=== PATIENT | male | born 1960 | race Caucasian/White ===

== ENCOUNTER 2016-06-24 22:25 | Observation (INO) | payer BC ==
[~2016-06-24] VITALS: Ht 182.9 cm; Wt 76.6 kg
[~2016-06-24 22:25] MED LIST: FLEXERIL OR; NAPROSYN500 MG OR; NEXIUM40 M1 OR; NO HOME MEDS; PRILOSEC20 MG OR; PRILOSEC20 MG/CAP PO; REGLAN5 MG OR; [UNRECOGNIZED DRUG - OTHER]
[2016-06-25 01:45] LABS: HEMATOCRIT 47.9 % (39.0-50.0); HEMOGLOBIN 16.4 g/dl (14.0-18.0); IMMATURE GRANULOCYTES 0.3 % (0.0-1.0); MEAN CELL VOLUME 91.4 fL CALC (80.0-100.0); MEAN CORPUSCULAR HGB 31.3 pG CALC (26.0-32.0); MEAN CORPUSCULAR HGB CONC 34.2 g/L CALC (32.0-36.0); NEUT# 4.58 thou/uL (1.82-7.42); RED BLOOD COUNT 5.24 mill/uL (4.70-6.10); RED CELL DISTRI WIDTH 12.7 % (11.5-15.5)
[2016-06-25 01:51] LABS: ALBUMIN 4.7 g/dL (3.2-5.0); ALKALINE PHOSPHATASE 63 u/l (38-126); ANION GAP 17 (6-22 (CALC)); BILIRUBIN, TOTAL 0.7 mg/dL (0.0-1.4); BUN 8 mg/dL (9-20); BUN/CREATININE RATIO 11 (12-20 (CALC)); CALCIUM 9.8 mg/dL (8.4-10.2); CARBON DIOXIDE 26 mmol/l (22-30); CHLORIDE 103 mmol/l (95-108); CREATININE 0.7 mg/dL (0.7-1.3); GFR > 60 ML/MIN (>=60 (CALC)); GFR FOR AFR.AMER. > 60 ML/MIN (>=60 (CALC)); GLUCOSE 94 mg/dL (75-110); POTASSIUM 3.7 mmol/l (3.5-5.1); SGOT/AST 51 u/l (17-59); SGPT/ALT 71 u/l (21-72); SODIUM 143 mmol/l (137-146); TOTAL PROTEIN 8.1 g/dL (6.3-8.2)
[2016-06-25 02:03] LABS: ACT PARTIAL THROMBO TIME 26.1 SECONDS (20.0-32.5); MYOGLOBIN 91 ng/mL (0 - 121); PROTHROMBIN TIME 10.6 SECONDS (9.0-12.5)
[2016-06-25 06:33] VITALS: BP 129/64
[2016-06-25 12:08] VITALS: BP 142/74
== END 2016-06-25 15:33 | disposition home or self-care (01) | DRG 313 ==
LOC: ENPENDDIS → ED 22:25 → ED-I 06-25 05:24 → ED 06-25 05:46 → MS2 06-25 05:47
PROVIDERS: Emergency Medicine; ADMIT Internal Medicine Geriatric Medicine; ATTEND Internal Medicine Geriatric Medicine
DX: R07.89 Other chest pain (principal); M62.838 Other muscle spasm
CPT/HCPCS: G0378

== ENCOUNTER 2017-03-17 11:02 | Emergency (ER) | payer BC ==
[~2017-03-17] VITALS: Ht 182.9 cm; Wt 95.0 kg
[2017-03-17 11:45] LABS: HEMOGLOBIN 16.9 g/dl (14.0-18.0); IMMATURE GRANULOCYTES 0.3 % (0.0-1.0); MEAN CELL VOLUME 91.6 fL CALC (80.0-100.0); MEAN CORPUSCULAR HGB 31.6 pG CALC (26.0-32.0); MEAN CORPUSCULAR HGB CONC 34.5 g/L CALC (32.0-36.0); NEUT# 5.26 thou/uL (1.82-7.42); RED BLOOD COUNT 5.35 mill/uL (4.70-6.10); RED CELL DISTRI WIDTH 12.3 % (11.5-15.5)
[2017-03-17 11:54] LABS: ANION GAP 18 (6-22 (CALC)); BUN 11 mg/dL (9-20); BUN/CREATININE RATIO 15 (12-20 (CALC)); CARBON DIOXIDE 24 mmol/l (22-30); CHLORIDE 102 mmol/l (95-108); CREATININE 0.8 mg/dL (0.7-1.3); GFR > 60 ML/MIN (>=60 (CALC)); GFR FOR AFR.AMER. > 60 ML/MIN (>=60 (CALC)); GLUCOSE 118 mg/dL (75-110); POTASSIUM 3.7 mmol/l (3.5-5.1); SODIUM 141 mmol/l (137-146)
[2017-03-17 11:56] LABS: PROTHROMBIN TIME 11.4 SECONDS (9.0-12.5)
[2017-03-17 15:26] VITALS: BP 164/79
== END 2017-03-17 15:05 | disposition left against medical advice (07) | DRG 66 ==
LOC: ED 11:02 → ED-I 14:24 → ED 15:05
PROVIDERS: Family Medicine
DX: I63.9 Cerebral infarction, unspecified (principal); Z91.19 Patient's noncompliance with other medical treatment and regimen; R20.0 Anesthesia of skin; R20.2 Paresthesia of skin; R51 Headache; Z72.89 Other problems related to lifestyle; R94.31 Abnormal electrocardiogram [ECG] [EKG]
CPT/HCPCS: Q9967

== ENCOUNTER 2018-08-17 15:56 | Emergency (ER) | payer BC ==
[~2018-08-17] VITALS: Ht 182.9 cm; Wt 95.0 kg
[2018-08-17 16:55] LABS: HEMATOCRIT 46.1 % (39.0-50.0); HEMOGLOBIN 15.7 g/dl (14.0-18.0); MEAN CELL VOLUME 91.7 fL CALC (80.0-100.0); MEAN CORPUSCULAR HGB 31.2 pG CALC (26.0-32.0); MEAN CORPUSCULAR HGB CONC 34.1 g/L CALC (32.0-36.0); RED BLOOD COUNT 5.03 mill/uL (4.70-6.10); RED CELL DISTRI WIDTH 12.7 % (11.5-15.5)
[2018-08-17 17:17] LABS: ALBUMIN 4.6 g/dL (3.2-5.0); ALKALINE PHOSPHATASE 60 u/l (38-126); ANION GAP 16 (6-22 (CALC)); BUN 8 mg/dL (9-20); BUN/CREATININE RATIO 12 (12-20 (CALC)); CARBON DIOXIDE 26 mmol/l (22-30); CHLORIDE 100 mmol/l (95-108); CREATININE 0.7 mg/dL (0.7-1.3); GFR > 60 ML/MIN (>=60 (CALC)); GFR FOR AFR.AMER. > 60 ML/MIN (>=60 (CALC)); POTASSIUM 3.6 mmol/l (3.5-5.1); SGOT/AST 60 u/l (17-59); SODIUM 138 mmol/l (137-146)
[2018-08-17 17:19] LABS: BILIRUBIN, TOTAL 1.1 mg/dL (0.0-1.4)
[2018-08-17] MEDS ORDERED: LISINOPRIL20 MG PO (18:29)
[2018-08-17 18:47] VITALS: BP 160/73
== END 2018-08-17 18:58 | disposition home or self-care (01) | DRG 305 ==
LOC: ED 15:56
PROVIDERS: Emergency Medicine
DX: I10 Essential (primary) hypertension (principal); R51 Headache; R50.9 Fever, unspecified

== ENCOUNTER 2018-09-14 11:18 | Emergency (ER) | payer BC ==
[~2018-09-14] VITALS: Ht 182.9 cm; Wt 94.0 kg
[~2018-09-14 11:18] MED LIST changes: +LISINOPRIL20 MG PO
[2018-09-14] MEDS ORDERED: LISINOPRIL20 MG PO (12:09)
[2018-09-14] MEDS ORDERED: LISINOPRIL20 M1 PO (12:14)
[2018-09-14 12:18] VITALS: BP 152/70
== END 2018-09-14 12:18 | disposition home or self-care (01) | DRG 951 ==
LOC: ED 11:18
DX: Z76.0 Encounter for issue of repeat prescription (principal); I10 Essential (primary) hypertension

== ENCOUNTER 2022-03-06 18:54 | Emergency (ER) | payer BC ==
[~2022-03-06] VITALS: Ht 182.9 cm; Wt 104.5 kg
[2022-03-06] VITALS (12 sets, daily range): BP systolic 123–221; BP diastolic 58–100
[~2022-03-06 18:54] MED LIST changes: +LISINOPRIL20 M1 PO
[2022-03-06 20:00] LABS: BASO% 0.1 % (0-3); HEMATOCRIT 42.4 % (39.0-50.0); HEMOGLOBIN 14.2 g/dl (14.0-18.0); IMMATURE GRANULOCYTES 0.3 % (0.0-5.0); LYMPH% 2.4 % (15-41); MEAN CELL VOLUME 93.4 fL CALC (80.0-100.0); MEAN CORPUSCULAR HGB 31.3 pG CALC (26.0-32.0); MEAN CORPUSCULAR HGB CONC 33.5 g/dL CAL (32.0-36.0); MONO% 12.8 % (2-13); NEUT# 9.64 thou/uL (1.82-7.42); NEUT% 84.4 % (42-76); RED BLOOD COUNT 4.54 mill/uL (4.70-6.10); RED CELL DISTRI WIDTH 12.9 % (11.5-15.5)
[2022-03-06 20:08] LABS: ALBUMIN 4.3 g/dL (3.2-5.0); ALKALINE PHOSPHATASE 38 u/l (38-126); ANION GAP 14 (6-22 (CALC)); BILIRUBIN, TOTAL 0.9 mg/dL (0.0-1.4); BUN 14 mg/dL (9-20); BUN/CREATININE RATIO 17 (12-20 (CALC)); CARBON DIOXIDE 29 mmol/l (22-30); CHLORIDE 98 mmol/l (95-108); CPK 180 u/l (52-200); CREATININE 0.8 mg/dL (0.7-1.3); ETHYL ALCOHOL 0 mg/dl (0-30); GFR FOR AFR.AMER. > 60 ML/MIN (>=60 (CALC)); GFR OTHER RACES > 60 ML/MIN (>=60 (CALC)); LIPASE 186 u/l (23-300); MAGNESIUM 2.1 mg/dL (1.6-2.3); POTASSIUM 4.1 mmol/l (3.5-5.1); SGOT/AST 78 u/l (17-59); SODIUM 137 mmol/l (137-146); TOTAL PROTEIN 7.4 g/dL (6.3-8.2)
[2022-03-06 20:11] LABS: ACT PARTIAL THROMBO TIME 19.8 SECONDS (20.0-32.5); INTERNATIONAL NORMALIZED RATIO 1.1 RATIO (0.7-1.3); PROTHROMBIN TIME 11.2 SECONDS (9.0-12.5)
[2022-03-06 20:19] LABS: MYOGLOBIN 126 ng/mL (0 - 121)
[2022-03-06 22:46] LABS: URINE BILIRUBIN - DIPSTICK NEGATIVE (NEGATIVE); URINE BLOOD DIPSTICK TRACE-INTACT (NEGATIVE); URINE COLOR YELLOW; URINE GLUCOSE - DIPSTICK NEGATIVE (NEGATIVE); URINE KETONE TRACE mg/dL (NEGATIVE); URINE LEUK ESTERASE NEGATIVE (NEGATIVE); URINE PH 7.5 (4.5-8.0); URINE PROTEIN - DIPSTICK NEGATIVE (NEG-TRACE); URINE SPECIFIC GRAVITY 1.015; URINE UROBILINOGEN - DIPSTICK 0.2 E.U./dL (0.2)
[2022-03-06 22:56] LABS: URINE NITRITE - DIPSTICK NEGATIVE (Negative)
[2022-03-07 00:01] VITALS: BP 198/84
[2022-03-07 00:16] VITALS: BP 137/100
[2022-03-07 00:31] VITALS: BP 227/111
[2022-03-07 00:34] VITALS: BP 222/115
[2022-03-07 00:45] VITALS: BP 249/122
[2022-03-07 01:30] VITALS: BP 249/122
== END 2022-03-07 01:30 | disposition short-term general hospital (02) | DRG 84 ==
LOC: ED 18:54
PROVIDERS: Family Medicine
DX: S06.6XAA Traumatic subarachnoid hemorrhage with loss of consciousness status unknown, initial encounter (principal); R40.2422 Glasgow coma scale score 9-12, at arrival to emergency department; W18.30XA Fall on same level, unspecified, initial encounter; Z91.81 History of falling; I10 Essential (primary) hypertension
CPT/HCPCS: J2060